=== PATIENT | female | born 1940 | race Caucasian/White ===

== ENCOUNTER 2022-02-25 19:55 | Inpatient (IN) | payer MEDICARE, OTHER ==
[~2022-02-25] VITALS: Ht 170.2 cm; Wt 48.5 kg
--- NOTE | 2022-02-25 20:10 | NUR ---
AFTER PATIENT WAS TRIAGED IN THE HALLWAY. PATIENT PLACED IN HALLWAY TO WAIT FOR BED OPENING IN THE ER.
[2022-02-25 20:37] LABS: HEMATOCRIT 41.7 % (31.2-41.9); MEAN CORPUSCULAR HEMOGLOBIN 31.5 uug (24.7-32.8); PLATELET COUNT (AUTO) 302 K/uL (179-408)
[2022-02-25 21:20] LABS: ALANINE AMINOTRANSFERASE 32 U/L (14-59); ALKALINE PHOSPHATASE 117 U/L (50-136); ASPARTATE AMINOTRANSFERASE 21 U/L (15-37); BILIRUBIN,DIRECT 0.1 mg/dL (0.0-0.2); BILIRUBIN,TOTAL 0.2 mg/dL (0.2-1.0); CARBON DIOXIDE 32 mmol/L (21-32); CHLORIDE 103 mmol/L (98-107); CREATINE KINASE, TOTAL 124 U/L (26-192); GLUCOSE 100 mg/dL (74-106); TOTAL PROTEIN, SERUM 7.1 g/dL (6.4-8.2); UREA NITROGEN, BLOOD 31 mg/dL (7-18)
[2022-02-25] MEDS ORDERED: QUET25TA PO (21:22)
[2022-02-25] MEDS ORDERED: ALPR0.5T8 PO (21:22)
[2022-02-25] MEDS ORDERED: FLUT16SP16 NS (21:22)
[2022-02-25] MEDS ORDERED: LEVO50TA8 PO (21:22)
[2022-02-25] MEDS ORDERED: BRIM5DRO2 EACHEYE (21:22)
[2022-02-25] MEDS ORDERED: ASCO500C18 PO (21:22)
[2022-02-25] MEDS ORDERED: DEXT15DR6 OP (21:22)
[2022-02-25] MEDS ORDERED: DONE10TA44 PO (21:22)
[2022-02-25] MEDS ORDERED: MULT-596 PO (21:22)
[2022-02-25] MEDS ORDERED: MELA3TAB41 PO (21:22)
[2022-02-25] MEDS ORDERED: LOPE2CAP PO (21:22)
[2022-02-25] MEDS ORDERED: ACET-2154 PO (21:22)
[2022-02-25] MEDS ORDERED: MAGN400O6 PO (21:22)
[2022-02-25] MEDS ORDERED: LOPE-197 PO (21:22)
[2022-02-25] MEDS ORDERED: MIRT-94 PO (21:22)
[2022-02-25 21:28] LABS: *BLOOD, URINE 2+ (NEGATIVE); *COLOR,URINE YELLOW (YELLOW); *KETONES,URINE TRACE (NEGATIVE); *UROBILINOGEN,URINE 0.2 E.U./dl (NORMAL); LEUKOCYTE ESTERASE ,URINE TRACE (NEGATIVE); NITRITE, URINE POSITIVE (NEGATIVE); PH,URINE 5.5 (5.0-8.0); UGLUCOSE NEGATIVE (NEGATIVE)
[2022-02-25 21:28] LABS: THYROID STIMULATING HORMONE 0.899 mIU/mL (0.358-3.740)
[2022-02-25 21:30] LABS: ACETAMINOPHEN < 2.0 ug/mL (10-30)
[2022-02-25 21:33] LABS: *BILIRUBIN,URIN 1+ (NEGATIVE); *CLARITY,URINE HAZY (CLEAR)
[2022-02-25 21:37] LABS: *AMPHETAMINE, URINE NEGATIVE (NEGATIVE); *CANNABINOID, URINE NEGATIVE (NEGATIVE); *COCCAINE, URINE NEGATIVE (NEGATIVE); *OPIATE, URINE NEGATIVE (NEGATIVE); *PHENCYCLIDINE SCREEN,URINE NEGATIVE (NEGATIVE)
[2022-02-25 21:38] LABS: ETHANOL < 3 MG/DL (0-0)
[2022-02-25 21:39] LABS: RBC,URINE 50-80 /HPF (0-3)
[2022-02-25 21:40] LABS: BACTERIA,URINE MODERATE /HPF (NONE SEEN); SQUAMOUS EPITHELIAL CELL,UR FEW /HPF (NONE SEEN)
--- NOTE | 2022-02-25 22:38 | NUR ---
Patient placed in room 3A at this time.
[2022-02-25] MEDS ORDERED: CEFTRIAXONE 1 G VIAL IM ONE (22:45)
--- NOTE | 2022-02-25 22:45 | NUR ---
Medically cleared by Dr Ness.
[2022-02-25] MEDS ORDERED: LIDOCAINE HCL 1% 20 ML VIAL ONE (22:53)
--- NOTE | 2022-02-25 23:12 | NUR ---
Pt. in room, gave IM Rocephin 1g.
--- NOTE | 2022-02-26 00:22 | NUR ---
Transfered to MHU via wheelcair with no distress noted.
[2022-02-26] MEDS ORDERED: MELATONIN 3 MG TABLET PO PRN (00:30)
[2022-02-26] MEDS ORDERED: DOSING BY PHARMACY-MD TO SPECIFY MED/ROUTE XX PRN (00:30)
[2022-02-26] MEDS ORDERED: ACETAMINOPHEN 325 MG TABLET PO PRN ×2 (00:45→01:30)
--- NOTE | 2022-02-26 01:18 | NUR ---
Admission Note: Received pt via ER staff on WC at 0025 hours. Pt is on a 72 hour hold d/t DTS and GD. Pt came from [facility] in [place], [place]. There, client expressed not wanting to live anymore, with suicidal ideations, increased depression, and anxiety. Pt also has not been eating or caring for her basic needs. Apon face to face evaluation, pt presented disheveled and malodorous. Pt was AOx3, ambulatory with walker x1 assist. Pt is self-care, compliant, and easily directable, pt was given her advisement and placed in her personal handbook at her bedside. Pt was explained her patient's rights, and the rules of the MHU. Pt denied SI, and stated she has been taking her medications up until her ER visit here at [facility] Pt will be followed by Ashley while here at MHU.
[2022-02-26 01:26] VITALS: BP 137/67
[2022-02-26] MEDS ORDERED: MAG HYDROX/AL HYDROX/SIMETH 30 ML LIQUID UDC PO PRN (01:30)
[2022-02-26] MEDS ORDERED: ZOLPIDEM 5 MG TABLET PO PRN (01:30)
[2022-02-26] MEDS ORDERED: LORAZEPAM 1 MG TABLET PO PRN (01:30)
[2022-02-26] MEDS ORDERED: MAGNESIUM HYDROXIDE 30 ML LIQUID UDC PO PRN (01:30)
[2022-02-26] MEDS: LEVOTHYROXINE SODIUM 50 MCG TABLET PO SCH (06:15)
--- NOTE | 2022-02-26 06:51 | NUR ---
GPS NOTES: Attempt to contact [facility] where she resides to get information about patient covid vaccination record. No answer, straight to voicemail.
[2022-02-26 07:30] VITALS: BP 99/53
[2022-02-26] MEDS: MULTIVITAMINS,THERAPEUTIC TABLET PO SCH (09:05)
[2022-02-26] MEDS: ASCORBIC ACID 500 MG TABLET PO SCH (09:05)
[2022-02-26] MEDS: NITROFURANTOIN/NITROFURAN MAC 100 MG CAPSULE PO SCH ×2 (09:05→20:31)
[2022-02-26] MEDS: BRIMONIDINE 0.2% OPHT DROP 10 ML BOTTLE EACHEYE SCH ×2 (10:02→17:37)
[2022-02-26] MEDS: TIMOLOL MALEATE 0.5% OPHT DROP 5 ML BOTTLE EACHEYE SCH ×2 (10:06→17:29)
[2022-02-26] MEDS: FLUTICASONE PROP NASAL SPRAY 16 GM BOTTLE NS SCH (10:08)
[2022-02-26] MEDS: POLYVINYL ALCOHOL OPHT DROPS 15 ML BOTTLE OP SCH ×3 (10:08→17:47)
[2022-02-26] MEDS: ESCITALOPRAM OXALATE 10 MG TABLET PO SCH (10:32)
--- NOTE | 2022-02-26 15:23 | NUR ---
Received patient awake in her room. Patient is A/O X 2 to person. Patient is cooperative with nursing care, compliant with medications, forgetful at times, depressed. Patient is encourage to verbalize concerns. Fall and safety precautions implemented.
[2022-02-26 16:00] VITALS: BP 106/42
[2022-02-26 19:45] VITALS: BP 101/63
[2022-02-26] MEDS: MIRTAZAPINE 15 MG TABLET PO SCH (20:32)
[2022-02-26] MEDS: DONEPEZIL 10 MG TABLET PO SCH (20:32)
[2022-02-26] MEDS: MELATONIN 3 MG TABLET PO SCH (20:32)
--- NOTE | 2022-02-27 03:57 | NUR ---
GPS NOTES: Patient is pleasant upon approached, she is A&0x3, ambulating with walker. Patient able to communicate her needs, med compliant. She denies SI and contracted safety with the technical report writer. Ativan given prn for anxiety. She sleeps mostly during shift. No distress noted. All safety strategies observed.
[2022-02-27] MEDS: LEVOTHYROXINE SODIUM 50 MCG TABLET PO SCH (06:06)
[2022-02-27 07:30] VITALS: BP 127/63
[2022-02-27] MEDS: MULTIVITAMINS,THERAPEUTIC TABLET PO SCH (08:26)
[2022-02-27] MEDS: NITROFURANTOIN/NITROFURAN MAC 100 MG CAPSULE PO SCH ×2 (08:26→20:50)
[2022-02-27] MEDS: ASCORBIC ACID 500 MG TABLET PO SCH (08:27)
[2022-02-27] MEDS: TIMOLOL MALEATE 0.5% OPHT DROP 5 ML BOTTLE EACHEYE SCH ×2 (08:28→17:32)
[2022-02-27] MEDS: ESCITALOPRAM OXALATE 10 MG TABLET PO SCH (08:29)
[2022-02-27] MEDS: FLUTICASONE PROP NASAL SPRAY 16 GM BOTTLE NS SCH (08:30)
[2022-02-27] MEDS: BRIMONIDINE 0.2% OPHT DROP 10 ML BOTTLE EACHEYE SCH ×2 (08:41→17:39)
[2022-02-27] MEDS: POLYVINYL ALCOHOL OPHT DROPS 15 ML BOTTLE OP SCH ×3 (08:41→17:42)
[2022-02-27 08:49] LABS: BILIRUBIN,TOTAL 0.3 mg/dL (0.2-1.0); CREATININE 0.6 mg/dL (0.6-1.3); POTASSIUM 3.5 mmol/L (3.5-5.1); TOTAL PROTEIN, SERUM 6.7 g/dL (6.4-8.2)
--- NOTE | 2022-02-27 11:45 | NUR ---
KARLA Initial Discharge Note: Pt currently resides at an Assisted Living located at [address] [place] [address] ([phone]). It is uncertain at this time if pt can return back. KARLA will continue to work with pt, family and and MD to ensure a safe and proper discharge plan.
--- NOTE | 2022-02-27 11:48 | NUR ---
Firearms Report: Tile Sorter completed and submitted a DOJ firearms report for 5150 a danger to self and grave disability certifications. A copy of report has been placed in patient chart.
[2022-02-27 16:00] VITALS: BP 128/79
--- NOTE | 2022-02-27 16:49 | NUR ---
Received patient awake in her room. Patient is A/O X 2 to person. Patient is cooperative, irritable at times, compliant with medications, forgetful, disorganized, depressed. Patient is encourage to vent feelings. Fall and safety precautions implemented.
--- NOTE | 2022-02-27 17:09 | NUR ---
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
[2022-02-27 20:08] VITALS: BP 121/55
[2022-02-27] MEDS: MIRTAZAPINE 15 MG TABLET PO SCH (20:50)
[2022-02-27] MEDS: DONEPEZIL 10 MG TABLET PO SCH (20:50)
[2022-02-27] MEDS: MELATONIN 3 MG TABLET PO SCH (20:51)
--- NOTE | 2022-02-28 02:39 | NUR ---
Received patient in her room. Awake and alert . The patient engaged in a meaningful conversation with this radio news writer, at that time ,she made a verbal contract for safety and denied SI. The patient was medication compliant . Safety Stratiges are in place, no acute distress noted.
[2022-02-28] MEDS: LEVOTHYROXINE SODIUM 50 MCG TABLET PO SCH (06:19)
[2022-02-28 07:30] VITALS: BP 113/54
[2022-02-28] MEDS: NITROFURANTOIN/NITROFURAN MAC 100 MG CAPSULE PO SCH ×2 (09:01→20:33)
[2022-02-28] MEDS: ASCORBIC ACID 500 MG TABLET PO SCH (09:02)
[2022-02-28] MEDS: ESCITALOPRAM OXALATE 10 MG TABLET PO SCH (09:02)
[2022-02-28] MEDS: MULTIVITAMINS,THERAPEUTIC TABLET PO SCH (09:02)
[2022-02-28] MEDS: ENSURE ENLIVE (VAN) 240 ML LIQUID PO SCH (09:03)
[2022-02-28] MEDS: FLUTICASONE PROP NASAL SPRAY 16 GM BOTTLE NS SCH (09:27)
[2022-02-28] MEDS: TIMOLOL MALEATE 0.5% OPHT DROP 5 ML BOTTLE EACHEYE SCH ×2 (09:29→16:21)
[2022-02-28] MEDS: BRIMONIDINE 0.2% OPHT DROP 10 ML BOTTLE EACHEYE SCH ×2 (09:29→16:21)
[2022-02-28] MEDS: POLYVINYL ALCOHOL OPHT DROPS 15 ML BOTTLE OP SCH ×3 (09:30→16:22)
[2022-02-28 20:03] VITALS: BP 104/50
[2022-02-28] MEDS: MIRTAZAPINE 15 MG TABLET PO SCH (20:33)
[2022-02-28] MEDS: MELATONIN 3 MG TABLET PO SCH (20:34)
[2022-02-28] MEDS: DONEPEZIL 10 MG TABLET PO SCH (20:34)
[2022-03-01] MEDS: LEVOTHYROXINE SODIUM 50 MCG TABLET PO SCH (05:59)
[2022-03-01 07:50] VITALS: BP 120/63
[2022-03-01] MEDS: ESCITALOPRAM OXALATE 10 MG TABLET PO SCH (08:32)
[2022-03-01] MEDS: MULTIVITAMINS,THERAPEUTIC TABLET PO SCH (08:33)
[2022-03-01] MEDS: ASCORBIC ACID 500 MG TABLET PO SCH (08:33)
[2022-03-01] MEDS: NITROFURANTOIN/NITROFURAN MAC 100 MG CAPSULE PO SCH ×2 (08:33→20:50)
[2022-03-01] MEDS: TIMOLOL MALEATE 0.5% OPHT DROP 5 ML BOTTLE EACHEYE SCH ×2 (08:36→17:07)
[2022-03-01] MEDS: ENSURE ENLIVE (VAN) 240 ML LIQUID PO SCH (08:37)
[2022-03-01] MEDS: FLUTICASONE PROP NASAL SPRAY 16 GM BOTTLE NS SCH (08:38)
[2022-03-01] MEDS: BRIMONIDINE 0.2% OPHT DROP 10 ML BOTTLE EACHEYE SCH ×2 (09:04→16:56)
[2022-03-01] MEDS: POLYVINYL ALCOHOL OPHT DROPS 15 ML BOTTLE OP SCH ×3 (09:12→17:17)
--- NOTE | 2022-03-01 15:04 | NUR ---
Patient is cooperative with nursing care, compliant with medications, argumentative, anxious at times, sociable, engage in conversations. Patient is A/O X 2 to person. Patient ambulates with walker, unsteady gait. Patient is encourage to vent feelings and emotions. Fall and safety precautions implemented.
[2022-03-01 16:33] VITALS: BP 117/67
[2022-03-01 20:00] VITALS: BP 117/64
[2022-03-01] MEDS: MELATONIN 3 MG TABLET PO SCH (20:50)
[2022-03-01] MEDS: DONEPEZIL 10 MG TABLET PO SCH (20:50)
[2022-03-01] MEDS: MIRTAZAPINE 15 MG TABLET PO SCH (20:50)
[2022-03-02] MEDS: LEVOTHYROXINE SODIUM 50 MCG TABLET PO SCH (06:25)
[2022-03-02 08:23] VITALS: BP 111/61
[2022-03-02] MEDS: NITROFURANTOIN/NITROFURAN MAC 100 MG CAPSULE PO SCH ×2 (08:31→20:53)
[2022-03-02] MEDS: MULTIVITAMINS,THERAPEUTIC TABLET PO SCH (08:31)
[2022-03-02] MEDS: ASCORBIC ACID 500 MG TABLET PO SCH (08:31)
[2022-03-02] MEDS: ESCITALOPRAM OXALATE 10 MG TABLET PO SCH (08:33)
[2022-03-02] MEDS: FLUTICASONE PROP NASAL SPRAY 16 GM BOTTLE NS SCH (08:33)
[2022-03-02] MEDS: TIMOLOL MALEATE 0.5% OPHT DROP 5 ML BOTTLE EACHEYE SCH ×2 (08:34→16:58)
[2022-03-02] MEDS: POLYVINYL ALCOHOL OPHT DROPS 15 ML BOTTLE OP SCH ×3 (08:34→16:59)
[2022-03-02] MEDS: ENSURE ENLIVE (VAN) 240 ML LIQUID PO SCH (08:36)
[2022-03-02] MEDS: BRIMONIDINE 0.2% OPHT DROP 10 ML BOTTLE EACHEYE SCH ×2 (08:36→16:58)
--- NOTE | 2022-03-02 14:46 | NUR ---
Received patient is alert and oriented x2 ambulate in the unit with 2W FWW , flat affect isolative with min. interaction with other peers, compliant with all po medication , denies any suicidal ideation ,encouraged to attend in group activity .
[2022-03-02 16:14] VITALS: BP 120/61
[2022-03-02 20:00] VITALS: BP 131/54
[2022-03-02] MEDS: MIRTAZAPINE 15 MG TABLET PO SCH (20:54)
[2022-03-02] MEDS: DONEPEZIL 10 MG TABLET PO SCH (20:54)
[2022-03-02] MEDS: MELATONIN 3 MG TABLET PO SCH (20:54)
--- NOTE | 2022-03-03 03:14 | NUR ---
GPS NOTES: Patient A&0x4, ambulatory with FWW. She is med compliant, complaint with all aspect of nursing care. No behavioral issues noted. Slept well during shift. No distress noted. All safety strategies are in placed.
[2022-03-03] MEDS: LEVOTHYROXINE SODIUM 50 MCG TABLET PO SCH (06:12)
[2022-03-03] MEDS: MULTIVITAMINS,THERAPEUTIC TABLET PO SCH (08:22)
[2022-03-03] MEDS: FLUTICASONE PROP NASAL SPRAY 16 GM BOTTLE NS SCH (08:23)
[2022-03-03] MEDS: ESCITALOPRAM OXALATE 10 MG TABLET PO SCH (08:23)
[2022-03-03] MEDS: ASCORBIC ACID 500 MG TABLET PO SCH (08:23)
[2022-03-03] MEDS: TIMOLOL MALEATE 0.5% OPHT DROP 5 ML BOTTLE EACHEYE SCH ×2 (08:24→17:24)
[2022-03-03] MEDS: POLYVINYL ALCOHOL OPHT DROPS 15 ML BOTTLE OP SCH ×3 (08:24→17:24)
[2022-03-03] MEDS: BRIMONIDINE 0.2% OPHT DROP 10 ML BOTTLE EACHEYE SCH ×2 (08:25→17:25)
[2022-03-03 09:04] VITALS: BP 107/53
--- NOTE | 2022-03-03 15:31 | NUR ---
KARLA Family Contact: KARLA spoke with pt's brother, Travis ([phone]) regarding pt's discharge plan this week. Travis provided pt's nurse helper's number, Los ([phone]) and stated she is a good contact for transportation. KARLA contacted Los and left a voicemail for a call back to discuss pt's discharge details. Travis stated he lives in [place]. However, Travis stated he will help this financial underwriter with connecting with staff and Los to plan for pt's discharge.
--- NOTE | 2022-03-03 15:33 | NUR ---
KARLA Discharge Update: KARLA spoke with pt's facility staff, Penelope ([phone]) who stated she will call this publications writer back to discuss further details. KARLA provided direct number and will continue to follow-up.
[2022-03-03 16:14] VITALS: BP 100/44
[2022-03-03 19:43] VITALS: BP 104/49
[2022-03-03] MEDS: MIRTAZAPINE 15 MG TABLET PO SCH (20:29)
[2022-03-03] MEDS: DONEPEZIL 10 MG TABLET PO SCH (20:29)
[2022-03-03] MEDS: MELATONIN 3 MG TABLET PO SCH (20:30)
--- NOTE | 2022-03-04 03:46 | NUR ---
Received patient watching TV in the day room. The patient is alert and oriented but does not engage in any meaningful conversation with staff or peers. This commercial lines underwriter was able to assess the patient for SI, which the patient denied having at this time and was willing to make a verbal contract for safety with this commercial lines underwriter for tonight. The patient is depressed and withdrawn. Safety Stratiges remain in place. This commercial lines underwriter will continue to encourage the patient to express feelings, identify triggers and have a plan in place with resources that are available upon discharge ,should the patient have SI.
[2022-03-04] MEDS: LEVOTHYROXINE SODIUM 50 MCG TABLET PO SCH (06:01)
[2022-03-04 07:48] VITALS: BP 143/81
[2022-03-04] MEDS: ASCORBIC ACID 500 MG TABLET PO SCH (08:15)
[2022-03-04] MEDS: BRIMONIDINE 0.2% OPHT DROP 10 ML BOTTLE EACHEYE SCH ×2 (08:15→17:19)
[2022-03-04] MEDS: ESCITALOPRAM OXALATE 10 MG TABLET PO SCH (08:15)
[2022-03-04] MEDS: MULTIVITAMINS,THERAPEUTIC TABLET PO SCH (08:15)
[2022-03-04] MEDS: FLUTICASONE PROP NASAL SPRAY 16 GM BOTTLE NS SCH (08:15)
[2022-03-04] MEDS: POLYVINYL ALCOHOL OPHT DROPS 15 ML BOTTLE OP SCH ×3 (08:16→17:19)
[2022-03-04] MEDS: TIMOLOL MALEATE 0.5% OPHT DROP 5 ML BOTTLE EACHEYE SCH ×2 (08:16→17:18)
--- NOTE | 2022-03-04 09:03 | NUR ---
KARLA Discharge Update: Frances Schwab from [facility] ([phone]) contacted this speech writer and stated that they will be able to provide transportation for pt to return to her assisted living upon discharge. frances stated he will call this speech writer for an update on the day and time they can provide transportation. KARLA informed pt's brother, Travis ([phone]), psychiatrist, Dr. Underwood and the pt regarding the discharge update.
[2022-03-04 15:13] VITALS: BP 126/58
--- NOTE | 2022-03-04 16:04 | NUR ---
Discharge Update: Margarito Schwab from [facility] ([phone]) contact this account underwriter and discussed that they are unable to provide transportation at this time due to pt's hospital location. Margarito stated he cannot provide transportation for one patient and unable to provide for his larger community as a result. Margarito stated he will contact pt's brother Travis to inform him as well. KARLA will follow-up with pt's brother, Travis to discuss an alternative transportation plan for the pt's return to [facility] in [place].
--- NOTE | 2022-03-04 16:43 | NUR ---
Received patient is alert and oriented x3 ambulate in the unit with 2W FWW , flat affect isolative and withdrawn with min. interaction with other peers, compliant with all po medication , denies any suicidal ideation ,encouraged to attend in group activity .
[2022-03-04 19:47] VITALS: BP 95/55
[2022-03-04] MEDS: MIRTAZAPINE 15 MG TABLET PO SCH (20:36)
[2022-03-04] MEDS: MELATONIN 3 MG TABLET PO SCH (20:37)
[2022-03-04] MEDS: DONEPEZIL 10 MG TABLET PO SCH (20:37)
[2022-03-05] MEDS: LEVOTHYROXINE SODIUM 50 MCG TABLET PO SCH (05:53)
[2022-03-05 07:30] VITALS: BP 130/77
[2022-03-05] MEDS: ESCITALOPRAM OXALATE 10 MG TABLET PO SCH (08:27)
[2022-03-05] MEDS: MULTIVITAMINS,THERAPEUTIC TABLET PO SCH (08:27)
[2022-03-05] MEDS: ASCORBIC ACID 500 MG TABLET PO SCH (08:28)
[2022-03-05] MEDS: BRIMONIDINE 0.2% OPHT DROP 10 ML BOTTLE EACHEYE SCH ×2 (08:29→16:57)
[2022-03-05] MEDS: FLUTICASONE PROP NASAL SPRAY 16 GM BOTTLE NS SCH (08:29)
[2022-03-05] MEDS: TIMOLOL MALEATE 0.5% OPHT DROP 5 ML BOTTLE EACHEYE SCH ×2 (08:41→16:48)
[2022-03-05] MEDS: POLYVINYL ALCOHOL OPHT DROPS 15 ML BOTTLE OP SCH ×3 (09:00→17:11)
--- NOTE | 2022-03-05 10:05 | NUR ---
KARLA Family Contact: KARLA spoke with pt's brother, Travis ([phone]) who stated he is still working on transportation for the pt's discharge this week. Travis stated he will cll this SW and confirm once he has a plan. KARLA stated she is available for help.
--- NOTE | 2022-03-05 15:43 | NUR ---
Patient is compliant with medications, cooperative with nursing care, sociable, likes to participate in group activities, demanding and argumentative at times. Emotional support provided. Fall and safety precautions implemented.
[2022-03-05 16:00] VITALS: BP 134/66
[2022-03-05] MEDS: MIRTAZAPINE 15 MG TABLET PO SCH (20:25)
[2022-03-05] MEDS: DONEPEZIL 10 MG TABLET PO SCH (20:26)
[2022-03-05 20:30] VITALS: BP 109/57
[2022-03-05] MEDS: MELATONIN 3 MG TABLET PO SCH (20:34)
--- NOTE | 2022-03-05 20:50 | NUR ---
GPS: Pt.is calm and compliant with her bedtime meds. Denies feeling depressed and having SI at this time. Safe environment provided. Will continue to anticipate needs and concerns of pt.
[2022-03-06] MEDS: LEVOTHYROXINE SODIUM 50 MCG TABLET PO SCH (06:29)
[2022-03-06 07:30] VITALS: BP 148/77
[2022-03-06] MEDS: POLYVINYL ALCOHOL OPHT DROPS 15 ML BOTTLE OP SCH (08:46)
[2022-03-06] MEDS: FLUTICASONE PROP NASAL SPRAY 16 GM BOTTLE NS SCH (08:46)
[2022-03-06] MEDS: TIMOLOL MALEATE 0.5% OPHT DROP 5 ML BOTTLE EACHEYE SCH (08:49)
[2022-03-06] MEDS: MULTIVITAMINS,THERAPEUTIC TABLET PO SCH (08:49)
[2022-03-06] MEDS: ASCORBIC ACID 500 MG TABLET PO SCH (08:49)
[2022-03-06] MEDS: ESCITALOPRAM OXALATE 10 MG TABLET PO SCH (08:52)
[2022-03-06] MEDS: BRIMONIDINE 0.2% OPHT DROP 10 ML BOTTLE EACHEYE SCH (08:57)
--- NOTE | 2022-03-06 10:38 | NUR ---
KARLA Discharge Note: Pt will be discharged to return to [facility] living [address] [place] [address] ([phone]) via Ly[employer] transportation at 11AM arranged by the pts brother, Travis ([phone]). Pts psychiatrist, Dr. Underwood is aware and agreeable with the discharge plan. KARLA spoke with accounts executive, Margarito at the facility ([phone]) who is aware, and they are ready to accept the patient today. Pt is aware and agreeable with discharge plan. Pt is alert and oriented x4, is unable to plan for self-care at this time. However, pt is willing to return to her assisted living and accept care at [facility]. Pt denies any suicidal or homicidal ideation. Pt will follow-up with her outpatient psychiatrist, Dr. Kerrie Buckley ([phone]) and Campaign Manager, Dr. Kamara ([phone]).
--- NOTE | 2022-03-06 10:41 | NUR ---
KARLA FINAL DISCHARGE NOTE: Pt will be discharged to return to [facility] living [address] [place] [address] ([phone]) via Lyft transportation at 11AM arranged by the pts brother, Travis ([phone]). Pts psychiatrist, Dr. Underwood is aware and agreeable with the discharge plan. KARLA spoke with junior account executive, Margarito at the facility ([phone]) who is aware, and they are ready to accept the patient today. Pt is aware and agreeable with discharge plan. Pt is alert and oriented x4, is unable to plan for self-care at this time. However, pt is willing to return to her assisted living and accept care at [facility]. Pt denies any suicidal or homicidal ideation. Pt will follow-up with her outpatient psychiatrist, Dr. Kerrie Buckley ([phone]) and Supervisor Abattoir, Dr. Kamara ([phone]). PHARMACY: [facility]
--- NOTE | 2022-03-06 11:28 | NUR ---
Received orders to discharged to return to [facility] [address] [place] [address] ([phone]) via Lyft transportation at 11AM, regional driver Bakari, arranged by the pts brother, Travis ([phone]). Patient is agreeable with discharge plans, but refuses sign all discharge documents. Patient denies SI/HI AH/VH, SOB, pain. Patient left the unit at 11:30 am. All belongings were returned to patient. Emotional support provided. Fall and safety precautions implemented.
== END 2022-03-06 11:30 | DRG 885 ==
LOC: ER 20:05 → GPS 23:00
PROVIDERS: ADMIT Psychiatry & Neurology Psychiatry; ATTEND Nurse Practitioner Acute Care
DX: F33.2 Major depressive disorder, recurrent severe without psychotic features (principal); N17.9 Acute kidney failure, unspecified; G93.41 Metabolic encephalopathy; R45.851 Suicidal ideations; N39.0 Urinary tract infection, site not specified; E44.1 Mild protein-calorie malnutrition; Z68.1 Body mass index [BMI] 19.9 or less, adult; E03.9 Hypothyroidism, unspecified; E88.09 Other disorders of plasma-protein metabolism, not elsewhere classified; R62.7 Adult failure to thrive; Z20.822 Contact with and (suspected) exposure to COVID-19; F03.90 Unspecified dementia, unspecified severity, without behavioral disturbance, psychotic disturbance, mood disturbance, and anxiety; E78.00 Pure hypercholesterolemia, unspecified; Z79.899 Other long term (current) drug therapy
CPT/HCPCS: 36415; 84443; 85025; 93005; A4663; G0480; J0696; J3490; J3535